=== PATIENT | male | born 1995 | race African-American/Black ===

== ENCOUNTER 2020-09-27 15:17 | Emergency (ER) | payer MEDICAID ==
[~2020-09-27] VITALS: Ht 172.7 cm; Wt 68.0 kg
[2020-09-27 15:26] VITALS: BP 135/81
[2020-09-27 15:47] LABS: BILIRUBIN,URINE NEGATIVE (NEGATIVE); COLOR,URINE YELLOW (YELLOW); LEUKOCYTE ESTERASE ,URINE NEGATIVE (NEGATIVE); NITRITE, URINE NEGATIVE (NEGATIVE); PROTEIN,URINE NEGATIVE (NEGATIVE); UGLUCOSE NEGATIVE (NEGATIVE); UROBILINOGEN,URINE 0.2 EU/dL (0.2)
[2020-09-27 15:55] LABS: RBC,URINE 0-2 /HPF (0-2); WBC,URINE 0-2 /HPF (0-3)
[2020-09-27 15:56] LABS: BACTERIA,URINE None seen /HPF (None Seen); MUCUS,URINE Many /LPF (None Seen); SQUAMOUS EPITHELIAL CELL,UR 0-2 /HPF (None Seen)
[2020-09-27] MEDS ORDERED: CEFTRIAXONE 1 G VIAL IM ONE (16:00)
[2020-09-27] MEDS ORDERED: DOXYCYCLINE HYCLATE (100 MG) 100 MG TABLET PO ONE (16:00)
[2020-09-27] MEDS ORDERED: DOXYCYCLINE HYCLATE (100 MG) 100 MG TABLET ONE (16:34)
[2020-09-27] MEDS ORDERED: CEFTRIAXONE 1 G VIAL ONE (16:34)
[2020-09-27] MEDS ORDERED: LIDOCAINE /MPF 1% VIAL 5 ML VIAL ONE (16:36)
== END 2020-09-27 16:50 | disposition home or self-care (01) ==
LOC: ER 15:23
DX: N34.2 Other urethritis (principal); L73.9 Follicular disorder, unspecified
CPT/HCPCS: 81001; 87086; 87491; 87591; 96372; 99283; J0696; J3490

== ENCOUNTER 2021-07-04 12:41 | Emergency (ER) | payer MEDICAID ==
[~2021-07-04] VITALS: Ht 172.7 cm; Wt 68.0 kg
[2021-07-04 12:50] VITALS: BP 114/61
[2021-07-04] MEDS ORDERED: IBUP-1955 PO (13:19)
--- NOTE | 2021-07-04 13:33 | NUR ---
Patient discharged to home in stable condition. Written and verbal after care instructions given. Patient verbalizes understanding of instruction.
== END 2021-07-04 13:33 | disposition home or self-care (01) ==
LOC: ER 12:42
DX: S90.111A Contusion of right great toe without damage to nail, initial encounter (principal); Z60.2 Problems related to living alone; W45.8XXA Other foreign body or object entering through skin, initial encounter; Y93.89 Activity, other specified; Y92.89 Other specified places as the place of occurrence of the external cause; Y99.8 Other external cause status